=== PATIENT | male | born 1940 | race Caucasian/White ===

== ENCOUNTER 2021-02-12 06:03 | Day surgery (SDC) | payer MEDICARE, OTHER ==
[2021-02-11 14:16] LABS: BASOPHILS # (AUTO) 0.1 X10'3 (0-0.2); BASOPHILS % (AUTO) 0.9 % (0-1); EOSINOPHILS # (AUTO) 0.3 X10'3 (0-0.9); EOSINOPHILS % (AUTO) 3.7 % (0-6); HEMATOCRIT 44.3 % (42.0-52.0); HEMOGLOBIN 14.5 g/dl (14.0-17.9); LYMPHOCYTES # (AUTO) 1.2 X10'3 (1.1-4.8); LYMPHOCYTES % (AUTO) 17.4 % (21-51); MEAN CORPUSCULAR HEMOGLOBIN 30.6 PG (27.0-31.0); MEAN CORPUSCULAR HGB CONC 32.8 g/dL (33.0-36.5); MEAN CORPUSCULAR VOLUME 93.3 FL (78-98); MEAN PLATELET VOLUME 8.1 FL (7.4-10.4); MONOCYTES # (AUTO) 0.7 X10'3 (0-0.9); MONOCYTES % (AUTO) 10.6 % (2-12); NEUTROPHILS # (AUTO) 4.8 X10'3 (1.8-7.7); NEUTROPHILS % (AUTO) 67.4 % (42-75); PLATELET COUNT 227 X10'3 (140-440); RED BLOOD COUNT 4.75 X10'6 (4.70-6.10); RED CELL DISTRIBUTION WIDTH 13.4 % (11.5-14.5)
[2021-02-11 14:28] LABS: ALBUMIN 3.4 G/DL (3.4-5.0); ANION GAP 5 (8-16); BLOOD UREA NITROGEN 21 MG/DL (7-18); BUN/CREATININE RATIO 21.2 (5.4-32.0); CALCIUM 9.1 MG/DL (8.5-10.1); CHLORIDE 109 MMOL/L (99-107); CREATININE 0.99 MG/DL (0.60-1.10); GLUCOSE 92 MG/DL (70-104); POTASSIUM 4.5 MMOL/L (3.5-5.1); SODIUM 142 MMOL/L (135-145); TOTAL CARBON DIOXIDE 28.1 MMOL/L (24-32); eGFR 73 ML/MIN
[2021-02-11 14:31] LABS: PARTIAL THROMBOPLASTIN TIME 27 SECONDS (22-32)
[~2021-02-12] VITALS: Ht 167.6 cm; Wt 76.6 kg
[2021-02-12] VITALS (9 sets, daily range): BP systolic 69–172; BP diastolic 70–88
[2021-02-12] MEDS ORDERED: normal saline 1,000 ML IV SCH (06:25)
[2021-02-12] MEDS ORDERED: cefazolin/dext.iso 2gm/100ml 100 ML IV ONE (06:25)
[2021-02-12] MEDS ORDERED: PROP10TA10 PO (06:30)
[2021-02-12] MEDS ORDERED: ATOR10TA87 PO (06:35)
[2021-02-12] MEDS ORDERED: CHOL100046 PO (06:35)
[2021-02-12] MEDS ORDERED: MECO10005 PO (06:35)
[2021-02-12] MEDS ORDERED: FISH1CAP15 PO (06:35)
[2021-02-12] MEDS ORDERED: ASPI-1265 PO (06:35)
[2021-02-12] MEDS ORDERED: FLAX10007 PO (06:35)
[2021-02-12] MEDS ORDERED: fentaNYL/PF 50MCG/1 ML 2ML syringe ONE (07:44)
[2021-02-12] MEDS ORDERED: ceFAZolin 1000mg inj ONE (07:44)
[2021-02-12] MEDS ORDERED: LIDOcaine 1% W/epiNEPHrine 1:100,000 20ml vial ONE (07:44)
[2021-02-12] MEDS ORDERED: midazolam 1 mg/ML 2ml injection ONE (07:44)
--- NOTE | 2021-02-12 07:54 | NUR ---
Patient to OR via gurney with stable vs, awake and alert. Belongings under gurney
[2021-02-12] MEDS ORDERED: diphenhydrAMINE 50 mg/ml inj ONE (08:04)
[2021-02-12] MEDS ORDERED: hydrocortisone sod succ/PF 100mg/2ml inj. ONE (08:28)
--- NOTE | 2021-02-12 10:01 | NUR ---
Pt rec from OR at 0945 s/p dual PPM. Site dressing CDI and without hematoma. Pt awake alert and oriented, vss. Neurovascular intact to left arm, fingers. Dr Quintanilla in to see, orders noted for CXR at 1100 as well as vanco infusion
[2021-02-12] MEDS ORDERED: vancomycin/NS 1 GM ADD-VANTAGE 250 ML X 1 DOSE IV ONE (11:00)
== END 2021-02-12 15:45 | disposition home or self-care (01) ==
LOC: SSTAY O 06:03
PROVIDERS: ATTEND Internal Medicine Cardiovascular Disease
DX: I49.5 Sick sinus syndrome (principal); I47.1 Supraventricular tachycardia; E78.5 Hyperlipidemia, unspecified; F17.200 Nicotine dependence, unspecified, uncomplicated; Z79.899 Other long term (current) drug therapy; Z79.82 Long term (current) use of aspirin; Z79.01 Long term (current) use of anticoagulants
CPT/HCPCS: 33208; 36415; 71046; 80048; 85025; 85610; 85730; 93005; 99152; 99153; C1785; C1894; C1898; J0690; J1200; J1720; J2250; J3010; J3370; J7030; A4620; A6258; A6449

== ENCOUNTER 2024-05-08 15:44 | Inpatient (IN) | payer MEDICARE, OTHER ==
[2024-05-08] VITALS (15 sets, daily range): BP systolic 19–126; BP diastolic 49–75; PULSE 63–80; RESP 10–16; TEMP 96.8–98.2; O2SAT 92–100
[~2024-05-08] VITALS: Ht 172.7 cm; Wt 66.0 kg
[~2024-05-08 15:44] MED LIST: FLAX10007 PO; MECO10005 PO; PROP10TA10 PO
[2024-05-08] MEDS: normal saline 1000ml 1,000 ML IV SCH (16:05)
[2024-05-08] MEDS ORDERED: ASCO-23 PO (16:19)
[2024-05-08] MEDS ORDERED: ASPI-1265 PO (16:19)
[2024-05-08] MEDS ORDERED: ATOR10TA87 PO (16:20)
[2024-05-08] MEDS ORDERED: CHOL20004 PO (16:22)
[2024-05-08] MEDS ORDERED: MELO-102 PO (16:22)
[2024-05-08] MEDS ORDERED: MULT-1085 PO (16:22)
[2024-05-08] MEDS ORDERED: glucagon, human recombinant 1mg kit ONE (16:24)
[2024-05-08] MEDS ORDERED: iohexol 300mg/ml 100ml inj. ONE (16:24)
[2024-05-08] MEDS ORDERED: HYDROmorphone/PF 0.2 MG/ML SYRINGE IV PRN ×3 (17:05→18:10)
[2024-05-08] MEDS ORDERED: meperidine/PF 25mg/ml syringe IV PRN (17:05)
[2024-05-08] MEDS ORDERED: proCHLORperazine 10 MG/2 ml inj IV PRN (17:05)
[2024-05-08] MEDS ORDERED: labetalol 20mg/4ml (5mg/ml) syringe IV PRN (17:05)
[2024-05-08] MEDS ORDERED: ondansetron/PF 4mg/2ml inj IV PRN ×2 (17:05→18:10)
[2024-05-08] MEDS ORDERED: morphine 2 MG/ML inj. syringe IV PRN ×3 (17:05→18:10)
[2024-05-08] MEDS ORDERED: hydrALAZINE 20mg/ml inj. IV PRN (17:05)
[2024-05-08] MEDS: acetaminophen 1,000mg/100ml IV 100 ML IV ONE (17:05)
[2024-05-08] MEDS ORDERED: morphine 4 MG/ML inj SYRINge IV PRN (17:05)
[2024-05-08] MEDS ORDERED: fentaNYL/PF 50MCG/1 ML 2ML syringe ONE (17:06)
[2024-05-08] MEDS ORDERED: midazolam 1 mg/ML 2ml injection ONE (17:07)
[2024-05-08] MEDS ORDERED: LIDOcaine 2% (20mg/ml) 5ml vial ONE (17:52)
[2024-05-08] MEDS ORDERED: propofol inj 20 ML IV ONE ×2 (17:52)
[2024-05-08] MEDS ORDERED: magnesium sulf-water 2g/50mL 50 ML IV PRN (18:10)
[2024-05-08] MEDS ORDERED: magnesium Cl slow-release 64mg tablet PO PRN (18:10)
[2024-05-08] MEDS ORDERED: potassium Cl 20 mEq SR tablet PO PRN (18:10)
[2024-05-08] MEDS ORDERED: HYDROmorphone inj. 0.5 MG/0.5 ML DISP.SYRIN IV PRN (18:10)
[2024-05-08] MEDS ORDERED: magnesium sulf-water 4G/100mL 100 ML IV PRN (18:10)
[2024-05-08] MEDS ORDERED: acetaminophen 325mg tablet PO PRN (18:10)
[2024-05-08] MEDS ORDERED: mag hydrox/Alum hydrox/simeth 30ml oral suspension PO PRN (18:10)
[2024-05-08] MEDS ORDERED: magnesium hydroxide 30ml (MOM) UD suspension PO PRN (18:10)
[2024-05-08] MEDS ORDERED: potassium Cl 40MEQ/1/2NS 520ml 520 ML IV PRN (18:10)
[2024-05-08] MEDS: ringers solution, lacted 1,000 ML IV SCH (18:44)
[2024-05-08] MEDS: docusate sod 100mg capsule PO SCH (19:45)
[2024-05-08] MEDS: propranolol 10mg tablet PO SCH (19:45)
[2024-05-08] MEDS: K and/or MAG REPLACEMENT MC SCH (20:00)
[2024-05-08] MEDS: diatr meglu/diatrizoate 30ml oral sol.-(3 dose) bottle PO SCH (21:34)
[2024-05-09] VITALS (20 sets, daily range): BP systolic 93–142; BP diastolic 55–96; PULSE 60–86; RESP 12–27; TEMP 97.3–98.4; O2SAT 94–100
[2024-05-09] MEDS ORDERED: loperamide 2mg capsule PO PRN (04:20)
[2024-05-09] MEDS ORDERED: HALLS - SOOTHE MENTHOL 1.8 MG cough drop LOZENGE MM PRN (04:20)
[2024-05-09 06:36] LABS: BASOPHILS # (AUTO) 0.1 X10'3 (0-0.2); BASOPHILS % (AUTO) 0.5 % (0-1); EOSINOPHILS # (AUTO) 0.1 X10'3 (0-0.9); HEMATOCRIT 40.2 % (42.0-52.0); HEMOGLOBIN 13.4 g/dl (14.0-17.9); LYMPHOCYTES # (AUTO) 1.2 X10'3 (1.1-4.8); LYMPHOCYTES % (AUTO) 11.7 % (21-51); MEAN CORPUSCULAR HEMOGLOBIN 30.6 PG (27.0-31.0); MEAN CORPUSCULAR HGB CONC 33.3 g/dL (33.0-36.5); MEAN PLATELET VOLUME 9.1 FL (7.4-10.4); MONOCYTES # (AUTO) 1.5 X10'3 (0-0.9); MONOCYTES % (AUTO) 14.7 % (2-12); NEUTROPHILS # (AUTO) 7.4 X10'3 (1.8-7.7); NEUTROPHILS % (AUTO) 72.1 % (42-75); PLATELET COUNT 138 X10'3 (140-440); RED BLOOD COUNT 4.37 X10'6 (4.70-6.10); RED CELL DISTRIBUTION WIDTH 13.7 % (11.5-14.5); WHITE BLOOD COUNT 10.3 X10'3 (4.5-11.0)
[2024-05-09 06:40] LABS: PROTHROMBIN TIME 10.3 SECONDS (9.0-12.0)
[2024-05-09 06:44] LABS: ALANINE AMINOTRANSFERASE 41 U/L (12-78); ALBUMIN 2.2 G/DL (3.4-5.0); ALBUMIN/GLOBULIN RATIO 0.8 (1.1-1.5); ALKALINE PHOSPHATASE 116 IU/L (46-116); ANION GAP 9 (8-16); ASPARTATE AMINO TRANSFERASE 14 U/L (10-37); BILIRUBIN,TOTAL 0.5 MG/DL (0.1-1.0); BLOOD UREA NITROGEN 12 MG/DL (7-18); BUN/CREATININE RATIO 13.3 (10.0-20.0); CALCIUM 8.3 MG/DL (8.5-10.1); CHLORIDE 108 MMOL/L (99-107); GLUCOSE 80 MG/DL (70-104); MAGNESIUM 1.6 MG/DL (1.5-2.4); POTASSIUM 3.5 MMOL/L (3.5-5.1); SODIUM 141 MMOL/L (135-145); TOTAL CARBON DIOXIDE 24.2 MMOL/L (24-32); TOTAL PROTEIN 5.1 G/DL (6.4-8.2); eCRCL 60 ML/MIN; eGFR 81 ML/MIN
[2024-05-09] MEDS: normal saline 1000ml 1,000 ML IV SCH (07:25)
[2024-05-09] MEDS: multivitamins, therapeutics tablet PO SCH (08:00)
[2024-05-09] MEDS: atorvastatin 10mg tablet PO SCH (08:00)
[2024-05-09] MEDS: ascorbic acid 500mg tablet PO SCH (08:00)
[2024-05-09] MEDS: cholecalciferol (vitamin D3) 1,000 unit (25mcg) tablet PO SCH (08:00)
[2024-05-09] MEDS: MELOXICAM 7.5 MG TABLET PO SCH (08:00)
[2024-05-09] MEDS ORDERED: BUPIVAcaine 2.5mg/ml inj 50ml vial (contains preservative) ONE (15:29)
[2024-05-09] MEDS ORDERED: sevoflurane 250ml liquid IH ONE (15:43)
[2024-05-09] MEDS ORDERED: fentaNYL/PF 50MCG/1 ML 2ML syringe ONE (15:46)
[2024-05-09] MEDS ORDERED: ceFAZolin 1000mg inj ONE ×2 (16:18)
[2024-05-09] MEDS ORDERED: propofol inj 20 ML IV ONE (16:19)
[2024-05-09] MEDS ORDERED: rocuronium 10mg/ml inj IV ONE (16:20)
[2024-05-09] MEDS: BUPIVAcaine 2.5mg/ml inj 50ml vial (contains preservative) SQ ONE (16:25)
[2024-05-09] MEDS: ringers solution, lacted 1,000 ML IV SCH (16:45)
[2024-05-09] MEDS ORDERED: morphine 2 MG/ML inj. syringe IV PRN (16:45)
[2024-05-09] MEDS ORDERED: ondansetron/PF 4mg/2ml inj IV PRN ×2 (16:45→17:10)
[2024-05-09] MEDS ORDERED: meperidine/PF 25mg/ml syringe IV PRN ×2 (16:45)
[2024-05-09] MEDS ORDERED: proCHLORperazine 10 MG/2 ml inj IV PRN (16:45)
[2024-05-09] MEDS ORDERED: morphine 4 MG/ML inj SYRINge IV PRN (16:45)
[2024-05-09] MEDS ORDERED: glycopyrrolate 0.2mg/ml inj ONE (16:56)
[2024-05-09] MEDS ORDERED: neostigmine methylsulfate 1 MG/ML 10ml vial ONE (16:56)
[2024-05-09] MEDS ORDERED: naloxone 0.4 mg/ml inj IV PRN (17:10)
[2024-05-09] MEDS ORDERED: HYDROmorphone inj. 0.5 MG/0.5 ML DISP.SYRIN IV PRN (17:10)
[2024-05-09] MEDS: meperidine/PF 25mg/ml syringe IV PRN (17:27)
[2024-05-09] MEDS: acetaminophen 1,000mg/100ml IV 100 ML IV ONE (17:40)
[2024-05-09] MEDS: HYDROcodone/acetaminophen 10/325mg tab PO PRN (19:33)
[2024-05-09] MEDS: CefTRIAXone/D5W-Rocephin 1gm 50 ML IV SCH (19:34)
[2024-05-09] MEDS: metroNIDAZOLE-Flagyl 500mg/NS 100 ML IV SCH (21:29)
[2024-05-10] VITALS (7 sets, daily range): BP systolic 111–138; BP diastolic 66–80; PULSE 64–78; RESP 13–21; TEMP 96.8–97.9; O2SAT 93–96
[2024-05-10 06:28] LABS: BASOPHILS # (AUTO) 0.1 X10'3 (0-0.2); BASOPHILS % (AUTO) 0.6 % (0-1); EOSINOPHILS # (AUTO) 0.1 X10'3 (0-0.9); EOSINOPHILS % (AUTO) 1.2 % (0-6); HEMATOCRIT 40.5 % (42.0-52.0); HEMOGLOBIN 13.6 g/dl (14.0-17.9); LYMPHOCYTES % (AUTO) 10.8 % (21-51); MEAN CORPUSCULAR HGB CONC 33.5 g/dL (33.0-36.5); MEAN CORPUSCULAR VOLUME 92.5 FL (78-98); MEAN PLATELET VOLUME 8.7 FL (7.4-10.4); MONOCYTES # (AUTO) 1.3 X10'3 (0-0.9); MONOCYTES % (AUTO) 13.7 % (2-12); NEUTROPHILS % (AUTO) 73.7 % (42-75); PLATELET COUNT 165 X10'3 (140-440); RED BLOOD COUNT 4.37 X10'6 (4.70-6.10); RED CELL DISTRIBUTION WIDTH 13.9 % (11.5-14.5); WHITE BLOOD COUNT 9.6 X10'3 (4.5-11.0)
[2024-05-10 06:51] LABS: ALANINE AMINOTRANSFERASE 37 U/L (12-78); ALBUMIN 2.2 G/DL (3.4-5.0); ALBUMIN/GLOBULIN RATIO 0.8 (1.1-1.5); ALKALINE PHOSPHATASE 109 IU/L (46-116); ANION GAP 9 (8-16); ASPARTATE AMINO TRANSFERASE 30 U/L (10-37); BILIRUBIN,TOTAL 0.5 MG/DL (0.1-1.0); BLOOD UREA NITROGEN 8 MG/DL (7-18); BUN/CREATININE RATIO 9.1 (10.0-20.0); CALCIUM 8.1 MG/DL (8.5-10.1); CHLORIDE 107 MMOL/L (99-107); CREATININE 0.88 MG/DL (0.60-1.10); GLUCOSE 76 MG/DL (70-104); MAGNESIUM 1.6 MG/DL (1.5-2.4); POTASSIUM 3.3 MMOL/L (3.5-5.1); SODIUM 143 MMOL/L (135-145); TOTAL CARBON DIOXIDE 26.6 MMOL/L (24-32); TOTAL PROTEIN 5.1 G/DL (6.4-8.2); eCRCL 61 ML/MIN; eGFR 83 ML/MIN
[2024-05-10] MEDS: potassium Cl 20 mEq SR tablet PO PRN (08:38)
[2024-05-10] MEDS ORDERED: nystatin 15 GM powder TP SCH (21:00)
[2024-05-11 06:00] VITALS: BP 108/61; PULSE 65; RESP 16; TEMP 97.5; O2SAT 95
[2024-05-11 06:54] LABS: BASOPHILS % (AUTO) 0.3 % (0-1); EOSINOPHILS # (AUTO) 0.2 X10'3 (0-0.9); EOSINOPHILS % (AUTO) 2.6 % (0-6); HEMATOCRIT 39.2 % (42.0-52.0); HEMOGLOBIN 13.2 g/dl (14.0-17.9); LYMPHOCYTES # (AUTO) 1.5 X10'3 (1.1-4.8); LYMPHOCYTES % (AUTO) 15.5 % (21-51); MEAN CORPUSCULAR HGB CONC 33.8 g/dL (33.0-36.5); MEAN CORPUSCULAR VOLUME 91.7 FL (78-98); MEAN PLATELET VOLUME 8.3 FL (7.4-10.4); MONOCYTES # (AUTO) 1.3 X10'3 (0-0.9); MONOCYTES % (AUTO) 14.1 % (2-12); NEUTROPHILS # (AUTO) 6.4 X10'3 (1.8-7.7); NEUTROPHILS % (AUTO) 67.5 % (42-75); PLATELET COUNT 189 X10'3 (140-440); RED BLOOD COUNT 4.27 X10'6 (4.70-6.10); RED CELL DISTRIBUTION WIDTH 13.6 % (11.5-14.5); WHITE BLOOD COUNT 9.5 X10'3 (4.5-11.0)
[2024-05-11 07:13] LABS: ALANINE AMINOTRANSFERASE 29 U/L (12-78); ALBUMIN 2.1 G/DL (3.4-5.0); ALBUMIN/GLOBULIN RATIO 0.8 (1.1-1.5); ALKALINE PHOSPHATASE 97 IU/L (46-116); ANION GAP 4 (8-16); ASPARTATE AMINO TRANSFERASE 20 U/L (10-37); BILIRUBIN,TOTAL 0.4 MG/DL (0.1-1.0); BLOOD UREA NITROGEN 6 MG/DL (7-18); BUN/CREATININE RATIO 7.6 (10.0-20.0); CALCIUM 8.2 MG/DL (8.5-10.1); CHLORIDE 106 MMOL/L (99-107); CREATININE 0.79 MG/DL (0.60-1.10); GLUCOSE 89 MG/DL (70-104); MAGNESIUM 1.6 MG/DL (1.5-2.4); POTASSIUM 3.7 MMOL/L (3.5-5.1); SODIUM 138 MMOL/L (135-145); TOTAL CARBON DIOXIDE 27.8 MMOL/L (24-32); TOTAL PROTEIN 4.9 G/DL (6.4-8.2); eCRCL 68 ML/MIN; eGFR > 90 ML/MIN
[2024-05-11 08:00] VITALS: RESP 16; O2SAT 95
[2024-05-11 10:00] VITALS: BP 114/76; PULSE 80; RESP 16; TEMP 97.6; O2SAT 95
[2024-05-11] MEDS ORDERED: METR-159 PO (10:41)
[2024-05-11] MEDS ORDERED: CEFD300C3 PO (10:41)
[2024-05-11] MEDS ORDERED: LACT1CAP55 PO (11:59)
== END 2024-05-11 13:00 | disposition home or self-care (01) | DRG 418 ==
LOC: ER 15:44 → ORTHO 4S 18:15
PROVIDERS: ADMIT Family Medicine; ATTEND Family Medicine
PROC: 0FC98ZZ Extirpation of Matter from Common Bile Duct, Via Natural or Artificial Opening Endoscopic (ICD-10-PCS; 2024-05-08)
PROC: BF101ZZ Fluoroscopy of Bile Ducts using Low Osmolar Contrast (ICD-10-PCS; 2024-05-08)
PROC: 0F798ZZ Dilation of Common Bile Duct, Via Natural or Artificial Opening Endoscopic (ICD-10-PCS; 2024-05-09)
PROC: 8E0W4CZ Robotic Assisted Procedure of Trunk Region, Percutaneous Endoscopic Approach (ICD-10-PCS; 2024-05-09)
PROC: 0FT44ZZ Resection of Gallbladder, Percutaneous Endoscopic Approach (ICD-10-PCS; principal; 2024-05-09 15:43)
DX: K80.21 Calculus of gallbladder without cholecystitis with obstruction (principal); A09 Infectious gastroenteritis and colitis, unspecified; K51.314 Ulcerative (chronic) rectosigmoiditis with abscess; I48.91 Unspecified atrial fibrillation; E78.5 Hyperlipidemia, unspecified; I10 Essential (primary) hypertension; Z95.0 Presence of cardiac pacemaker; Z91.013 Allergy to seafood
CPT/HCPCS: 36415; 43264; 74176; 76700; 80053; 82948; 83735; 85025; 85610; 87081; 88304; 93005; 93306; 99285; A4215; A4615; A4618; A6402; A6449; A7000; C1769; G0378; J0131; J0690; J0696; J1610; J2003; J2175; J2250; J2704; J2710; J3010; J3490; J7030; J7120; Q9963; Q9967